=== PATIENT | female | born 1965 ===

== ENCOUNTER → 2016-06-29 | Outpatient (CLI) | payer OTHER ==
--- NOTE | 2016-06-29 13:12 | XR ---
EXAMINATION TYPE: XR cervical spine comp DATE OF EXAM: 06/29/2016 12:25 PM TECHNIQUE: Frontal, lateral, oblique, and open mouth view of the cervical spine are obtained. HISTORY: Anterior cortex Field for COMPARISON: None FINDINGS: The cervical spine is visualized in its entirety from C1 thru the inferior C7 vertebral niko dy level, it is straightened in alignment without evidence of acute fracture or dislocation. The pre -vertebral soft tissue appears within normal limits. The C1-C2 articulation is within normal limits on the open mouth view. Vertebral body heights are maintained. There is mild to moderate disc space narrowing with moderate spurring at C5-C6 level. There is slightly suboptimal evaluation of the C7-T1 disc space without dedicated swimmer's view. The oblique images are within normal limits. Overlying soft tissue is unremarkable. IMPRESSION: Straightening of cervical spine with mild to moderate degenerative changes C5-C6 level no oriana.
--- NOTE | 2016-06-29 13:13 | XR ---
EXAMINATION TYPE: XR thoraco lumbar junction DATE OF EXAM: 06/29/2016 12:25 PM COMPARISON: NONE HISTORY: Acute back pain per order TECHNIQUE: 2 views of the thoracolumbar spine are acquired. FINDINGS: Imaging is performed from mid thoracic to mid lumbar levels. There is no acute fracture or dislocation seen. Vertebral body heights and disc space heights are fairly well-maintained. Alignmen t is satisfactory. There is minimal multilevel anterior and lateral spurring in the mid to lower thor acic spine. Cholecystectomy clips are noted. IMPRESSION: Minimal multilevel spurring.
== END | disposition home or self-care (01) ==
LOC: RADXRMAIN 12:05
PROVIDERS: ATTEND Pediatrics
DX: M47.812 Spondylosis without myelopathy or radiculopathy, cervical region (principal); M43.8X2 Other specified deforming dorsopathies, cervical region; M46.04 Spinal enthesopathy, thoracic region; M54.5 Low back pain
CPT/HCPCS: 72050; 72080